=== PATIENT | female | born 1980 | race African-American/Black ===

== ENCOUNTER 2021-06-20 07:44 | Day surgery (SDC) | payer OTHER ==
[2021-06-16 17:35] VITALS: BMI 37.8
[2021-06-20] MEDS ORDERED: BUPIVACAINE HCL 100 ML ONE (09:32)
[2021-06-20] MEDS ORDERED: MORPHINE SULFATE 10 MG/1 ML *VIAL ONE (09:38)
[2021-06-20] MEDS ORDERED: PROPOFOL 20 ML ONE (09:42)
[2021-06-20] MEDS ORDERED: BUPIVACAINE HCL/PF 0.5% (5MG/ML) 10 ML VIAL IJ ONE (10:22)
[2021-06-20 12:23] VITALS: TEMP 97.6
[2021-06-20] MEDS ORDERED: ACETAMINOPHEN 325 MG TABLET (FP) PO PRN (12:30)
[2021-06-20] MEDS ORDERED: ACETAMINOPHEN 325 MG TABLET (FP) ONE (14:07)
[2021-06-20 15:39] VITALS: BP 120/80; PULSE 71
== END 2021-06-20 15:20 | disposition home or self-care (01) ==
LOC: FASU 07:44
PROVIDERS: ATTEND Orthopaedic Surgery
PROC: 0SBD4ZZ Excision of Left Knee Joint, Percutaneous Endoscopic Approach (ICD-10-PCS; 2021-06-20)
PROC: 0SQD4ZZ Repair Left Knee Joint, Percutaneous Endoscopic Approach (ICD-10-PCS; 2021-06-20)
PROC: 0SBD4ZZ Excision of Left Knee Joint, Percutaneous Endoscopic Approach (ICD-10-PCS; 2021-06-20)
PROC: 0SBD4ZZ Excision of Left Knee Joint, Percutaneous Endoscopic Approach (ICD-10-PCS; principal; 2021-06-20 10:26)
DX: S83.242A Other tear of medial meniscus, current injury, left knee, initial encounter (principal); S83.282A Other tear of lateral meniscus, current injury, left knee, initial encounter; S83.32XA Tear of articular cartilage of left knee, current, initial encounter; M25.662 Stiffness of left knee, not elsewhere classified; M93.262 Osteochondritis dissecans, left knee; M94.262 Chondromalacia, left knee; M67.262 Synovial hypertrophy, not elsewhere classified, left lower leg; M25.862 Other specified joint disorders, left knee; X58.XXXA Exposure to other specified factors, initial encounter; Y93.9 Activity, unspecified; Y92.9 Unspecified place or not applicable
CPT/HCPCS: 84703; 94760